=== PATIENT | male | born 1960 | race American Indian/Alaskan Native ===

== ENCOUNTER 2016-06-13 08:13 | Day surgery (SDC) | payer OTHER ==
--- NOTE | 2016-05-25 09:14 | Anesthesia Consultation ---
Anesthesia Consult and Med Hx Date of service: 05/30/16 - Airway Anesthetic Teeth Evaluation: Good ROM Head & Neck: Adequate Mental/Hyoid Distance: Adequate Mallampati Class: Class I Intubation Access Assessment: Good - Pulmonary Exam CTA: Yes - Cardiac Exam Cardiac Exam: RRR - Pre-Operative Health Status ASA Pre-Surgery Classification: ASA2 Proposed Anesthetic Plan: Epidural Nerve Block: adducter canal - Pulmonary Hx Smoking: Yes (1/2 PPD X 32 YRS) Hx Sleep Apnea: No (EMILEE PRE SCREEN HIGH RISK) - Cardiovascular System Hx Hypertension: Yes (X 20 YRS) - Other Systems Hx Cancer: No - Additional Comments Anesthesia Medical History Comments: Patient had surgery in 1981 and had marked difficulty waking up(many hours) He is amenable to regional with block for this surgery.
[2016-05-25 10:21] LABS: Basophils % (Auto) 0.8 % (0.0-1.8); Eosinophils % (Auto) 2.8 % (0.0-4.3); Hemoglobin 15.7 gm/dl (11.8-15.2); Mean Corpuscular HGB Conc 34 % (32-34); Mean Corpuscular Hemoglobin 31 pg (28-32); Mean Corpuscular Volume 89 fl (84-94); Platelet Count 235 K/mm3 (140-440); Red Blood Count 5.14 M/mm3 (3.65-5.03); Red Cell Distribution Width 13.2 % (13.2-15.2); White Blood Count 4.2 K/mm3 (4.5-11.0)
[2016-05-25 10:38] LABS: Alanine Aminotransferase 26 units/L (7-56); Albumin 4.2 g/dL (3.9-5); Albumin/Globulin Ratio 1.2 %; Alkaline Phosphatase 55 units/L (35-129); Anion Gap 18 mmol/L; BUN/Creatinine Ratio 15.55; Bilirubin,Total 0.5 mg/dL (0.1-1.2); Blood Urea Nitrogen 14 mg/dL (9-20); Calcium 9.1 mg/dL (8.4-10.2); Carbon Dioxide 23 mmol/L (22-30); Chloride 102.6 mmol/L (98-107); Glucose 90 mg/dL (75-100); Potassium 4.3 mmol/L (3.6-5.0); Sodium 139 mmol/L (137-145); Total Protein 7.7 g/dL (6.3-8.2)
[2016-05-25 10:57] LABS: INR 0.9 (0.87-1.13)
[2016-05-25 10:58] LABS: Partial Thromboplastin Time 28.5 Sec. (24.2-36.6)
[~2016-06-13 08:13] MED LIST: ANCEF/STERILE WATER 2 GM/20 ML 20 ML IV NR; LACTATED RINGERS 1,000 ML IV SCH; PEPCID PO NR; VERSED IV NR
[2016-06-13] MEDS ORDERED: XYLOCAINE MPF 2% ONE (09:11)
[2016-06-13] MEDS ORDERED: ZOFRAN ONE (09:11)
[2016-06-13] MEDS ORDERED: DILAUDID ONE ×3 (09:11→13:14)
[2016-06-13] MEDS ORDERED: DIPRIVAN 10 MG/ML IV ONE (09:13)
[2016-06-13] MEDS ORDERED: DECADRON ONE (09:35)
[2016-06-13] MEDS ORDERED: MARCAINE-EPI 0.5%-1:200,000 INFILTRATI ONE (09:35)
[2016-06-13] MEDS ORDERED: LACTATED RINGERS 1,000 ML IV SCH (10:00)
[2016-06-13] MEDS ORDERED: NEO SYNEPHRINE/NS Syringe(OR USE) IV ONE (10:30)
[2016-06-13] MEDS ORDERED: NACL 0.9% IR ONE ×2 (11:05)
[2016-06-13] MEDS ORDERED: ADRENALIN IV ONE (11:05)
[2016-06-13] MEDS ORDERED: MARCAINE-EPI 0.25%-1:200,000 INFILTRATI ONE (11:05)
--- NOTE | 2016-06-13 11:20 | Anesthesia Day of Surgery ---
Anesthesia Day of Surgery - Day of Surgery Patient Examined: Yes Patient H&P Reviewed: Yes Patient is NPO: Yes
[2016-06-13] MEDS ORDERED: ePHEDrine SULFATE ONE (11:24)
[2016-06-13] MEDS ORDERED: PERCOCET 5/325 PO PRN (13:12)
[2016-06-13] MEDS ORDERED: ZOFRAN IV PRN (13:12)
[2016-06-13] MEDS ORDERED: TORADOL IV PRN (13:13)
--- NOTE | 2016-06-13 13:14 | Post Anesthesia Evaluation ---
- Post Anesthesia Evaluation Patient Participated: Yes Airway Patent: Yes Stable Respiratory Function: No Nausea/Vomiting: Yes Temp > 96.8F: Yes Pain Manageable: Yes Adequeate Hydration: Yes Anesthesia Complications: No Block Receding Appropriately: Not Applicable Patient on Ventilator: No
[2016-06-13] MEDS: DILAUDID IV PRN ×4 (13:24→14:53)
--- NOTE | 2016-06-13 13:50 | Short Stay Summary ---
Short Stay Documentation Date of service: 06/13/16 - History H&P: obtained from office - Allergies and Medications Current Medications: Allergies morphine Allergy (Verified 05/23/16 15:33) Itching Home Medications Medication Instructions Recorded Confirmed Last Taken Type Nifedipine ER 90 mg PO DAILY 05/23/16 06/13/16 06/13/16 07:05 History Trazodone HCl 50 mg PO QHS 06/13/16 06/13/16 06/12/16 23:30 History Active Medications Famotidine (Pepcid) 20 mg PO PREOP NR Stop: 06/13/16 23:59 Last Admin: 06/13/16 09:53 Dose: 20 mg Hydromorphone HCl (Dilaudid) 0.5 mg IV Q10MIN PRN PRN Reason: Pain , Severe (7-10) Stop: 06/13/16 23:59 Last Admin: 06/13/16 13:33 Dose: 0.5 mg Cefazolin Sodium (Ancef/Sterile Water 2 Gm/20 Ml) 20 mls @ 80 mls/hr IV PREOP NR PRN Reason: Protocol Stop: 06/13/16 23:59 Lactated Ringer's (Lactated Ringers) 1,000 mls @ 125 mls/hr IV DIRECT ARETHA Last Admin: 06/13/16 09:50 Dose: 125 mls/hr Ketorolac Tromethamine (Toradol) 30 mg IV ONCE PRN PRN Reason: Pain, Moderate (4-6) Stop: 06/13/16 23:59 Midazolam HCl (Versed) 2 mg IV PREOP NR Stop: 06/13/16 23:59 Last Admin: 06/13/16 10:03 Dose: 2 mg Ondansetron HCl (Zofran) 4 mg IV ONCE PRN PRN Reason: Nausea And Vomiting Stop: 06/13/16 23:59 Oxycodone/Acetaminophen (Percocet 5/325) 2 tab PO ONCE PRN PRN Reason: Pain, Moderate (4-6) Stop: 06/13/16 23:59 - Brief post op/procedure progress note Date of procedure: 06/13/16 Pre-op diagnosis: ACL tear left knee Post-op diagnosis: same Procedure: Arthroscopic ACL reconstruction Anesthesia: regional Findings: ACl tear; small tear MM Surgeon: ANTENOR AMY Estimated blood loss: minimal Pathology: none - Disposition Condition at discharge: Stable Disposition: DISCHARGED TO HOME OR SELFCARE - Discharge Diagnoses (1) ACL (anterior cruciate ligament) tear Status: Resolved Qualifiers: Encounter type: initial encounter Laterality: left Qualified Code(s): S83.512A - Sprain of anterior cruciate ligament of left knee, initial encounter Short Stay Discharge Plan Follow up with: PRIMARY CARE, [Primary Care Provider] - 7 Days
[2016-06-13 15:06] VITALS: BP 135/77
--- NOTE | 2016-06-14 22:08 | Operative Report ---
PREOPERATIVE DIAGNOSES: PREOPERATIVE DIAGNOSES: Anterior cruciate ligament tear of the left knee, medial meniscal tear. POSTOPERATIVE DIAGNOSES: Anterior cruciate ligament tear of the left knee, medial meniscal tear. PROCEDURE: Diagnostic arthroscopy, arthroscopic debridement of the knee, arthroscopic ACL reconstruction using allograft, arthroscopic partial meniscectomy. COMPLICATIONS: None. SURGEON: Mikey Palacio MD [employer] PLACING SUPERVISOR: Kamaljit Sloan RN FINDINGS: The patient was found to have a small tear of the medial meniscus in the posterior third, a complete tear of the cruciate ligament, without any other abnormalities. The chondral surfaces of the knee looked normal, both medial and lateral compartments. DESCRIPTION OF PROCEDURE: After a timeout, the patient was prepped and draped in usual fashion, placed on the surgical table for ACL repair. real estate assistant was required secondary to complexity of the case. Once the patient was on the surgical table, prepping and draping of the patient was done in usual fashion. Procedure was carried out by the insertion of the scope in the medial and lateral parapatellar portal. The procedure was carried out by the evaluation of the knee joint ____ this basis. Once the evaluation of the knee was carried out, first a small tear of the meniscus on the medial side was resected using the rotator meniscotome. Once this was carried out using an Arthrocare unit, rotator meniscotome and a bur, debridement of the stump of the ACL was done, also preparation of the inside portion of the knee joint for the insertion of the components. The isometric point of the tibia was selected as was on the femur. A ____ guide was inserted, and this allowed for the drilling of a hole from the tibia into the notch of the knee. This was carried out by the insertion of the instrument, following this by making an incision about 2 cm in length on the medial side of the tibia. This allowed for the passage of the guide wire followed by a 10 mm drill. The area was chamfered and cleaned out. All debris was removed. The second hole was then carried out into the tibia, into the femur. This was carried out using a 3 mm step guide in the posterior corner. This hole was carried out for a distance of 3 mm. A ____ was placed through this area and existed through the dorsum of the knee. Once all this was done, the procedure was continued by preparation of the graft. The ____ [id number] graft was prepared on the surgical table, for the insertion of the ____. The graft was then passed into the knee using the guide sutures from the Beath needle, it was placed into the femur. Once it was done, fixation of the bone block and femur was carried out using compression interference of screw. The graft was then tensioned multiple times, following this by the insertion of a secondary wire and a secondary screw into the tibia side. Once it was done, the procedure was terminated. The wound was irrigated extensively. ____ was removed, the wound was infiltrated with Marcaine and closure was carried out with Monocryl suture and compression bandage applied. The patient tolerated the procedure well. There were no complications. JOB# [id number] DEACON/CLARK
== END 2016-06-13 15:10 | disposition home or self-care (01) ==
LOC: OR 08:13
DX: S83.242A Other tear of medial meniscus, current injury, left knee, initial encounter (principal); S83.512A Sprain of anterior cruciate ligament of left knee, initial encounter; I10 Essential (primary) hypertension; K21.9 Gastro-esophageal reflux disease without esophagitis; F17.210 Nicotine dependence, cigarettes, uncomplicated; Z72.89 Other problems related to lifestyle; Z80.9 Family history of malignant neoplasm, unspecified; Z82.3 Family history of stroke; Z82.49 Family history of ischemic heart disease and other diseases of the circulatory system; X58.XXXA Exposure to other specified factors, initial encounter; Y93.9 Activity, unspecified; Y92.9 Unspecified place or not applicable; Y99.9 Unspecified external cause status
CPT/HCPCS: 29881; 29888; 36415; 64447; 80053; 85025; 85610; 85730; 97116; 97161; A4217; C1713; C1762; J0171; J0690; J1100; J1170; J2250; J2370; J2405; J2704; J7120; J1885

== ENCOUNTER 2019-04-28 06:39 | Day surgery (SDC) | payer OTHER ==
[2019-04-28] MEDS ORDERED: SODIUM CHLORIDE 0.9% 1000 ML 1,000 ML IV SCH (07:30)
[2019-04-28] MEDS ORDERED: WATER FOR IRRIG STERILE 250 ML BOTTLE IR ONE (07:36)
[2019-04-28] MEDS ORDERED: PROPOFOL 200 MG/20 ML VIAL IV ONE ×2 (07:38→07:39)
--- NOTE | 2019-04-28 07:54 | Anesthesia Day of Surgery ---
Anesthesia Day of Surgery - Day of Surgery Patient Examined: Yes Patient H&P Reviewed: Yes Patient is NPO: Yes Beta Blockers: No Cardiac Clearance: No Pulmonary Clearance: No Remy's Test: Negative
--- NOTE | 2019-04-28 08:05 | Anesthesia Consultation ---
Anesthesia Consult and Med Hx Date of service: 04/28/19 - Airway Anesthetic Teeth Evaluation: Good ROM Head & Neck: Adequate Mallampati Class: Class I Intubation Access Assessment: Good - Pulmonary Exam CTA: Yes - Cardiac Exam Cardiac Exam: RRR - Pre-Operative Health Status ASA Pre-Surgery Classification: ASA2 Proposed Anesthetic Plan: MAC - Pulmonary Hx Smoking: Yes (1/2 PPD X 32 YRS; vapes; uses inhaler) SOB: Yes (OLIVIA) COPD: Yes Hx Sleep Apnea: No (EMILEE PRE SCREEN HIGH RISK) - Cardiovascular System Hx Hypertension: Yes - Gastrointestinal Hx Gastroesophageal Reflux Disease: Yes (r/t spicey foods) - Other Systems Hx Alcohol Use: Yes (wknd) Hx Cancer: No
--- NOTE | 2019-04-28 08:35 | Procedure Note ---
Date of procedure: 04/28/19 Pre-op diagnosis: Colon Polyp Screening/F/H/O Cancer Post-op diagnosis: other (No Colon Polyp or Diverticular Disease noted/Normal, Ileal Mucosa/Minor, Internal Hemorrhoid) Procedure: Colonoscopy Anesthesia: MAC Surgeon: KIMBERLYN DAVILA Estimated blood loss: none Pathology: none Condition: stable Disposition: same day (Resume home medication and follow up in 1 to 2 weeks ([phone]).)
--- NOTE | 2019-04-28 08:46 | Operative Report ---
PROCEDURE: Colonoscopy. INDICATIONS: A 58-year-old -[place] gentleman with underlying history of hypertension, family history of cancer. The patient's father had colon cancer. Sister had brain tumor. The patient has had a colonoscopy done several years ago. Colonoscopy was done as part of colon polyp screening. Procedure was done after getting informed consent with MAC anesthesia. Initial rectal exam was unremarkable. Instrument was passed through the rectum onto the cecum, which was identified by the ileocecal valve and the appendiceal orifice. Visualization was fair to good. The terminal ileum was intubated showed normal mucosa. The cecum was also examined on the retroverted view. No additional pathology was noted. The cecum, ascending colon, transverse colon, descending colon, and sigmoid showed normal mucosa. There was no evidence of any polyps, colitis or diverticular disease and the rectum showed minor internal hemorrhoid on the retroverted view. ASSESSMENT: Colon polyp screening, family history of cancer. No colon polyps or diverticular disease noted. Normal ileal mucosa. Minor internal hemorrhoid. PLAN: To resume previous medication. Have the patient follow up in the office in 1-2 weeks' time. The procedure was done in the GI lab with the assistance of the GI lab team, which included Jocelyne HOLM with Nalini rodriguez and with assistance of anesthesia. JOB# [id number] TYLER/CLARK
--- NOTE | 2019-04-28 08:49 | Post Anesthesia Evaluation ---
- Post Anesthesia Evaluation Patient Participated: Yes Airway Patent: Yes Stable Respiratory Function: Yes Nausea/Vomiting: No Temp > 96.8F: Yes Pain Manageable: Yes Adequeate Hydration: Yes Anesthesia Complications: No
[2019-04-28 08:59] VITALS: BP 115/86
== END 2019-04-28 06:40 | disposition home or self-care (01) ==
LOC: GIO 06:39
DX: Z12.11 Encounter for screening for malignant neoplasm of colon (principal); K64.8 Other hemorrhoids; I10 Essential (primary) hypertension; J44.9 Chronic obstructive pulmonary disease, unspecified; K21.9 Gastro-esophageal reflux disease without esophagitis; Z80.0 Family history of malignant neoplasm of digestive organs; Z88.5 Allergy status to narcotic agent; Z79.899 Other long term (current) drug therapy; Z72.89 Other problems related to lifestyle; Z98.890 Other specified postprocedural states
CPT/HCPCS: 36415; 45378; 84153; J2704; J7030